=== PATIENT | male | born 1930 | race Caucasian/White ===

== ENCOUNTER → 2017-10-17 | Day surgery (SDC) | payer MEDICARE, BC ==
[~2017-10-17] MED LIST: DEXAMETHASONE SOD PHOS 4 MG/ML VIAL; EPINEPHrine HCL (1:1000) 1 MG/ML VIAL; LACTATED RINGER'S 1000 ML INJ 1,000 ML; MOXIFLOXACIN 0.5% OPHT SOLN 3 ML BTL; ONDANSETRON HCL 4 MG/2 ML VIAL IV PUSH; PHENYLEPHRINE HCL 2.5 % OPTH SOLN 15 ML BTL; PROPOFOL 200 MG/20 ML AMP IV; SODIUM CHLORIDE 0.9% INJ 10 ML; TETRACAINE 0.5% OPTH SOLN 15 ML BTL; TOBRAMYCIN/DEXAMETHASONE OPTH OINT 3.5 GM TUBE; TRIAMCINOLONE ACETONIDE 40 MG/ML VIAL; ceFAZolin INJ 1,000 MG VIAL; prednisoLONE ACETATE 1% OPHT SUSP 5 ML BTL
== END | disposition home or self-care (01) ==
LOC: ESDC 07:26
DX: T85.22XA Displacement of intraocular lens, initial encounter (principal)
CPT/HCPCS: 00142